=== PATIENT | male | born 1955 | race Caucasian/White ===

== ENCOUNTER 2020-03-31 09:55 | Day surgery (SDC) | payer MEDICARE ==
[~2020-03-31] VITALS: Ht 177.8 cm; Wt 11.4 kg
[2020-03-31 10:34] VITALS: BP 125/79
[2020-03-31] MEDS ORDERED: GLUC-121 PO (10:39)
[2020-03-31] MEDS ORDERED: APIX5TAB PO (10:39)
[2020-03-31] MEDS ORDERED: CHOL10003 PO (10:39)
[2020-03-31] MEDS ORDERED: ATEN25TA PO (10:39)
[2020-03-31] MEDS ORDERED: ATOR-2 PO (10:39)
[2020-03-31] MEDS ORDERED: MULT-658 PO (10:39)
[2020-03-31] MEDS ORDERED: S-AD400T3 PO (10:39)
[2020-03-31] MEDS ORDERED: CYAN50008 PO (10:39)
[2020-03-31] MEDS ORDERED: PROPOFOL 10 MG/ML, 20ML ONE (12:44)
== END 2020-03-31 14:10 | disposition home or self-care (01) ==
LOC: CACL 09:55
PROVIDERS: ATTEND Internal Medicine Cardiovascular Disease
DX: I48.91 Unspecified atrial fibrillation (principal); I10 Essential (primary) hypertension; I25.10 Atherosclerotic heart disease of native coronary artery without angina pectoris; I25.2 Old myocardial infarction; E78.00 Pure hypercholesterolemia, unspecified; E66.9 Obesity, unspecified; Z68.34 Body mass index [BMI] 34.0-34.9, adult; Z79.01 Long term (current) use of anticoagulants; Z79.899 Other long term (current) drug therapy; Z90.49 Acquired absence of other specified parts of digestive tract; Z95.5 Presence of coronary angioplasty implant and graft; Z82.49 Family history of ischemic heart disease and other diseases of the circulatory system
CPT/HCPCS: 92960; 93005; J2704

== ENCOUNTER → 2020-04-07 | Outpatient (CLI) | payer MEDICARE ==
[~2020-04-07] MED LIST: APIX5TAB PO; ATEN25TA PO; ATOR-2 PO; CHOL10003 PO; CYAN50008 PO; GLUC-121 PO; MULT-658 PO; REGADENOSON 0.4 MG/5 ML SYRINGE ONE; S-AD400T3 PO
== END | disposition home or self-care (01) ==
LOC: CFH 07:38
PROVIDERS: ATTEND Internal Medicine Cardiovascular Disease
DX: I25.9 Chronic ischemic heart disease, unspecified (principal); I25.10 Atherosclerotic heart disease of native coronary artery without angina pectoris; I10 Essential (primary) hypertension
CPT/HCPCS: 78452; 93017; A9502; J2785

== ENCOUNTER → 2020-10-09 | Outpatient (CLI) | payer MEDICARE ==
[~2020-10-09] MED LIST changes: -REGADENOSON 0.4 MG/5 ML SYRINGE ONE
== END | disposition home or self-care (01) ==
LOC: CVU 13:56
PROVIDERS: ATTEND Internal Medicine Cardiovascular Disease
DX: I08.1 Rheumatic disorders of both mitral and tricuspid valves (principal); I10 Essential (primary) hypertension; I48.91 Unspecified atrial fibrillation; I25.10 Atherosclerotic heart disease of native coronary artery without angina pectoris
CPT/HCPCS: 93306

== ENCOUNTER → 2020-11-13 | Outpatient (CLI) | payer MEDICARE ==
[~2020-11-13] MED LIST changes: +OMNIPAQUE 350 MG/ML, 150 ML BOTTLE ONE
== END | disposition home or self-care (01) ==
LOC: CFH 14:06
PROVIDERS: ATTEND Internal Medicine Cardiovascular Disease
DX: I48.91 Unspecified atrial fibrillation (principal)
CPT/HCPCS: 71046; 75572; Q9967

== ENCOUNTER 2020-11-20 03:55 | Inpatient (IN) | payer MEDICARE ==
[~2020-11-20] VITALS: Ht 177.8 cm; Wt 114.7 kg
[~2020-11-20 03:55] MED LIST changes: +COLC0.6C3 PO; +GABA300C PO; -OMNIPAQUE 350 MG/ML, 150 ML BOTTLE ONE; +SOTA80TA18 PO
--- NOTE | 2020-11-20 04:17 | NUR ---
placed on 2 L NC for RA sat of 88-89%, now 98% on 2L
--- NOTE | 2020-11-20 04:22 | NUR ---
pt sitting upright in gurney, sob, speaking few words at a time in between breaths. pt states this is unusual for him. at bedside stating last week he was moving up and down stairs and going ice skating without any issues. pt recently discharged for ablation for a-fib and states is on coumadin.
[2020-11-20] MEDS ORDERED: SODIUM CHLORIDE FLUSH 10ML SYR IVF ONE (05:00)
[2020-11-20 05:39] LABS: CHLORIDE 110 mmol/L (98-107)
[2020-11-20 05:46] LABS: BASOPHILS % (AUTO) 1 % (0-1); EOSINOPHILS % (AUTO) 1 % (1-7); LYMPHOCYTES % (AUTO) 14 % (22-44); MEAN CORPUSCULAR HEMOGLOBIN 35.3 pg (27.5-34.5); MEAN CORPUSCULAR HGB CONC 34.1 g/dL (33.2-36.2); MEAN PLATELET VOLUME 10.1 fL (7.4-10.4); MONOCYTES % (AUTO) 10 % (2-9); NEUTROPHILS % (AUTO) 75 % (42-75); PLATELET COUNT 136 x10^3/uL (130-400); RED BLOOD COUNT 3.93 x10^6/uL (4.38-5.82); RED CELL DISTRIBUTION WIDTH 13.6 % (9.4-14.8)
[2020-11-20 05:57] LABS: ALANINE AMINOTRANSFERASE 52 U/L (12-78); ALBUMIN 3.2 g/dL (3.4-5.0); ALKALINE PHOSPHATASE 98 U/L (45-117); ANION GAP 2 mmol/L (5-15); BILIRUBIN,TOTAL 1.3 mg/dL (0.2-1.0); CALCIUM 8.6 mg/dL (8.5-10.1); CREATININE 0.68 mg/dL (0.7-1.3); TOTAL PROTEIN 7.2 g/dL (6.4-8.2)
[2020-11-20 06:02] LABS: TROPONIN I 0.469 ng/mL (0.000-0.045)
--- NOTE | 2020-11-20 06:15 | NUR ---
pt up to restroom multiple times, has steady gait. at bedside
--- NOTE | 2020-11-20 06:22 | NUR ---
pt to imaging
[2020-11-20] MEDS ORDERED: OMNIPAQUE 350 MG/ML, 100ML BOTTLE ONE (06:32)
[2020-11-20 06:38] LABS: MD SCAN
--- NOTE | 2020-11-20 06:56 | NUR ---
Took report from Yamila Bishop RN, assume care at this time.
--- NOTE | 2020-11-20 06:59 | NUR ---
REPORT GIVEN TO VIKY RAMSEY
--- NOTE | 2020-11-20 07:05 | NUR ---
Pt calm sitting up in bed talking in complete sentence. Went over plan of care. Reports getting an ablasion on the 11/14/2020.
[2020-11-20] MEDS ORDERED: FUROSEMIDE 20 MG/2 ML IV ONE (07:30)
[2020-11-20] MEDS ORDERED: FUROSEMIDE 20 MG/2 ML ONE (07:35)
[2020-11-20] MEDS ORDERED: CEFTRIAXONE PMX 1GM/50ML 50 ML ONE (09:34)
[2020-11-20] MEDS ORDERED: DOXYCYCLINE 100MG TABLET ONE (09:34)
[2020-11-20] MEDS: DOXYCYCLINE 100MG TABLET PO SCH ×2 (09:37→20:48)
[2020-11-20] MEDS: CEFTRIAXONE PMX 1GM/50ML 50 ML IV SCH (09:38)
[2020-11-20] MEDS ORDERED: PROMETHAZINE 25 MG/ML, 1ML IM PRN (10:00)
[2020-11-20] MEDS ORDERED: GABAPENTIN 300 MG CAPSULE PO PRN (10:00)
[2020-11-20] MEDS ORDERED: POLYETHYLENE GLYCOL 17 GM PACKET PO PRN (10:00)
[2020-11-20] MEDS ORDERED: DOCUSATE 100 MG CAPSULE PO PRN (10:00)
[2020-11-20] MEDS ORDERED: ENALAPRILAT 1.25 MG/ML, 2ML IVPush PRN (10:00)
[2020-11-20 11:41] LABS: TROPONIN I 0.396 ng/mL (0.000-0.045)
--- NOTE | 2020-11-20 12:26 | NUR ---
Diet tray given
--- NOTE | 2020-11-20 12:27 | NUR ---
2,500ml urine out total
[2020-11-20 12:48] LABS: RAPID INFLUENZA A Negative (Negative); RAPID INFLUENZA B Negative (Negative)
[2020-11-20 17:09] VITALS: BP 173/90
[2020-11-20 17:39] LABS: TROPONIN I 0.374 ng/mL (0.000-0.045)
[2020-11-20] MEDS: FUROSEMIDE 20 MG/2 ML IV SCH (17:51)
[2020-11-20] MEDS: SOTALOL 80MG TABLET PO SCH (17:51)
[2020-11-20 18:47] VITALS: BP 151/92
[2020-11-20] MEDS: ATORVASTATIN 80 MG TABLET PO SCH (20:47)
[2020-11-20] MEDS: APIXABAN 5 MG TABLET PO SCH (20:48)
[2020-11-21 00:55] VITALS: BP 149/89
[2020-11-21] MEDS: ACETAMINOPHEN 325 MG TABLET PO PRN ×2 (01:00→08:11)
[2020-11-21 05:39] VITALS: BP 128/80
[2020-11-21] MEDS: SOTALOL 80MG TABLET PO SCH ×2 (05:41→18:27)
[2020-11-21 06:25] LABS: BASOPHILS % (AUTO) 1 % (0-1); EOSINOPHILS % (AUTO) 2 % (1-7); LYMPHOCYTES % (AUTO) 31 % (22-44); MEAN CORPUSCULAR HEMOGLOBIN 35.1 pg (27.5-34.5); MEAN CORPUSCULAR HGB CONC 34.4 g/dL (33.2-36.2); MEAN PLATELET VOLUME 10.3 fL (7.4-10.4); MONOCYTES % (AUTO) 14 % (2-9); NEUTROPHILS % (AUTO) 53 % (42-75); PLATELET COUNT 133 x10^3/uL (130-400); RED BLOOD COUNT 3.85 x10^6/uL (4.38-5.82); RED CELL DISTRIBUTION WIDTH 13.3 % (9.4-14.8)
[2020-11-21 06:47] LABS: ALBUMIN 2.9 g/dL (3.4-5.0); CHLORIDE 107 mmol/L (98-107)
[2020-11-21 07:16] LABS: ALANINE AMINOTRANSFERASE 44 U/L (12-78); ALKALINE PHOSPHATASE 82 U/L (45-117); ANION GAP 6 mmol/L (5-15); BILIRUBIN,TOTAL 1.4 mg/dL (0.2-1.0); CALCIUM 8.6 mg/dL (8.5-10.1); CHOL/HDL RATIO 3.3; CHOLESTEROL, TOTAL 100 mg/dL (140-239); CREATININE 0.68 mg/dL (0.7-1.3); HDL CHOL % 30 % (26-37); HDL CHOLESTEROL (DIRECT) 30 mg/dL (40-60); LDL CHOLESTEROL,CALCULATED 57 mg/dL (54-169); LDL/HDL RATIO 1.9 (0.5-3.0); TOTAL PROTEIN 6.4 g/dL (6.4-8.2); TRIGLYCERIDES 65 mg/dL (50-200); VLDL CHOLESTEROL 13 mg/dL (0-25)
[2020-11-21 07:19] VITALS: BP 129/78
[2020-11-21 07:39] LABS: MD SCAN
[2020-11-21] MEDS: FUROSEMIDE 20 MG/2 ML IV SCH ×2 (08:10→16:44)
[2020-11-21] MEDS: DOXYCYCLINE 100MG TABLET PO SCH ×2 (08:10→20:41)
[2020-11-21] MEDS: CHOLECALCIFEROL 1,000 UNIT TABLET PO SCH (08:10)
[2020-11-21] MEDS: APIXABAN 5 MG TABLET PO SCH ×2 (08:11→20:41)
[2020-11-21] MEDS: CEFTRIAXONE PMX 1GM/50ML 50 ML IV SCH (08:13)
[2020-11-21 12:18] VITALS: BP 152/85
[2020-11-21 20:11] VITALS: BP 146/82
[2020-11-21] MEDS: ATORVASTATIN 80 MG TABLET PO SCH (20:41)
[2020-11-22 01:39] VITALS: BP 134/71
[2020-11-22] MEDS: SOTALOL 80MG TABLET PO SCH (05:31)
[2020-11-22 06:29] LABS: BASOPHILS % (AUTO) 0 % (0-1); EOSINOPHILS % (AUTO) 2 % (1-7); LYMPHOCYTES % (AUTO) 32 % (22-44); MEAN CORPUSCULAR HEMOGLOBIN 34.7 pg (27.5-34.5); MEAN CORPUSCULAR HGB CONC 34.1 g/dL (33.2-36.2); MEAN PLATELET VOLUME 9.4 fL (7.4-10.4); MONOCYTES % (AUTO) 13 % (2-9); NEUTROPHILS % (AUTO) 52 % (42-75); PLATELET COUNT 169 x10^3/uL (130-400); RED BLOOD COUNT 4.08 x10^6/uL (4.38-5.82); RED CELL DISTRIBUTION WIDTH 13.5 % (9.4-14.8)
[2020-11-22 06:31] LABS: MD NO
[2020-11-22 06:41] LABS: ANION GAP 6 mmol/L (5-15); CALCIUM 9.3 mg/dL (8.5-10.1); CHLORIDE 107 mmol/L (98-107)
[2020-11-22 06:42] LABS: CREATININE 0.73 mg/dL (0.7-1.3)
[2020-11-22 07:00] VITALS: BP 113/62
[2020-11-22] MEDS ORDERED: FLU VACC QS2020-21(6MOS UP)/PF 60MCG/0.5 ML SYR IM ONE (07:30)
[2020-11-22] MEDS: CEFTRIAXONE PMX 1GM/50ML 50 ML IV SCH (09:30)
[2020-11-22] MEDS ORDERED: DOXY100T PO (09:47)
[2020-11-22] MEDS ORDERED: CEFD300C37 PO (09:47)
[2020-11-22] MEDS ORDERED: FUROSEMIDE 20 MG TABLET ONE (09:50)
[2020-11-22] MEDS: DOXYCYCLINE 100MG TABLET PO SCH (09:52)
[2020-11-22] MEDS: CHOLECALCIFEROL 1,000 UNIT TABLET PO SCH (09:52)
[2020-11-22] MEDS: APIXABAN 5 MG TABLET PO SCH (09:52)
[2020-11-22] MEDS ORDERED: FUROSEMIDE 20 MG TABLET PO SCH (10:00)
== END 2020-11-22 11:10 | disposition home or self-care (01) | DRG 175 ==
LOC: ED 06:30 → EDIP 07:17 → 4EST 16:58 → 5SO 11-22 06:04 → DCLOUNGE 11-22 10:54
PROVIDERS: ADMIT Hospitalist; ATTEND Family Medicine
DX: I26.99 Other pulmonary embolism without acute cor pulmonale (principal); J18.9 Pneumonia, unspecified organism; J96.01 Acute respiratory failure with hypoxia; I50.33 Acute on chronic diastolic (congestive) heart failure; D68.69 Other thrombophilia; I48.92 Unspecified atrial flutter; J98.11 Atelectasis; I11.0 Hypertensive heart disease with heart failure; Z20.822 Contact with and (suspected) exposure to COVID-19; D75.89 Other specified diseases of blood and blood-forming organs; E55.9 Vitamin D deficiency, unspecified; E78.5 Hyperlipidemia, unspecified; I48.91 Unspecified atrial fibrillation; K80.20 Calculus of gallbladder without cholecystitis without obstruction; Z23 Encounter for immunization; I25.2 Old myocardial infarction
CPT/HCPCS: 36415; 71275; 74022; 80048; 80053; 80061; 82607; 83690; 83880; 84443; 84484; 85025; 85379; 87040; 87081; 87400; 87880; 90686; 93005; 93306; 93970; G0378; J0696; Q9967; J1940; U0003

== ENCOUNTER 2020-12-01 09:46 | Day surgery (SDC) | payer MEDICARE ==
[~2020-12-01] VITALS: Ht 177.8 cm; Wt 111.0 kg
[~2020-12-01 09:46] MED LIST changes: +CEFD300C37 PO; +DOXY100T PO
[2020-12-01 10:19] VITALS: BP 142/94
[2020-12-01 10:58] LABS: ANION GAP 7 mmol/L (5-15); CALCIUM 8.8 mg/dL (8.5-10.1); CHLORIDE 111 mmol/L (98-107); CREATININE 0.67 mg/dL (0.7-1.3)
[2020-12-01] MEDS ORDERED: PROPOFOL 10 MG/ML, 20ML ONE (11:45)
== END 2020-12-01 12:50 | disposition home or self-care (01) ==
LOC: CACL 09:46
PROVIDERS: ATTEND Internal Medicine Cardiovascular Disease
DX: I48.92 Unspecified atrial flutter (principal); I48.91 Unspecified atrial fibrillation; I10 Essential (primary) hypertension; I25.10 Atherosclerotic heart disease of native coronary artery without angina pectoris; I25.2 Old myocardial infarction; E78.5 Hyperlipidemia, unspecified; E66.3 Overweight; Z68.35 Body mass index [BMI] 35.0-35.9, adult; Z79.01 Long term (current) use of anticoagulants; Z79.899 Other long term (current) drug therapy
CPT/HCPCS: 36415; 80048; 92960; 93005; J2704